=== PATIENT | male | born 1955 | race Caucasian/White ===

== ENCOUNTER 2017-10-12 21:08 | Emergency (ER) | payer MEDICARE ==
[2017-10-12] MEDS ORDERED: ASPIRIN 325 MG TABLET PO ONE (21:14)
--- NOTE | 2017-10-12 21:17 | Emergency Department Record ---
History of Present Illness - General Chief Complaint: Chest Pain Stated Complaint: CHEST PAIN Time Seen by Provider: 10/12/17 21:14 Source: Patient, Family Mode of Arrival: Ambulatory Limitations: No limitations - History of Present Illness Initial Comments: 62 yo male presents with chest pain on and off for the last week. 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 His course was complicated by a sternal fracture in the post op period. 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 It happens with movements, cough, laugh, position changes. It is not with exertion. No shortness of breath. The pain is "pokey" or sharp with certain palpation, movements or positions. The pain occurs with reaching, pushing, more noticeable upright than laying down. MD Complaint: Chest pain -: Week(s) (1) Onset: During rest (with movement) Pain Location: Right chest Pain Radiation: None Severity: Moderate Quality: Sharp Consistency: Intermittent Improves With: Remaining still Worsens With: Movement, Palpation Context: Other (History of sternal injury) Anginal Symptoms: Other (No other symptoms) Treatments Prior to Arrival: None - Related Data Home Medications Medication Instructions Recorded Confirmed Last Taken Aspirin 81 mg PO DAILY 10/12/17 10/12/17 Unknown Atorvastatin Calcium 80 mg PO DAILY 10/12/17 10/12/17 Unknown Cholecalciferol (Vitamin D3) 2,000 unit PO DAILY 10/12/17 10/12/17 Unknown [Vitamin D3] Ferrous Sulfate [Iron] 325 mg PO DAILY 10/12/17 10/12/17 Unknown Glipizide [Glucotrol] 10 mg PO BID 10/12/17 10/12/17 Unknown Ibuprofen [Motrin 400Mg] 400 mg PO Q8H 10/12/17 10/12/17 Unknown Losartan Potassium [Cozaar] 100 mg PO QAM 10/12/17 10/12/17 Unknown Metformin HCl [Glucophage] 1,000 mg PO BID 10/12/17 10/12/17 Unknown Metoprolol Succinate 150 mg PO DAILY 10/12/17 10/12/17 Unknown Pantoprazole Sodium [Protonix] 40 mg PO DAILY 10/12/17 10/12/17 Unknown Previous Rx's Medication Instructions Recorded Hydrocodone/Acetaminophen [[place] 1 tab PO Q8H PRN #15 tab 10/12/17 10mg/325mg] Allergies Allergy/AdvReac Type Severity Reaction Status Date / Time No Known Drug Allergies Allergy Verified 10/12/17 21:21 Review of Systems Constitutional: Denies: Chills, Fever, Malaise, Weakness Eyes: Denies: Eye discharge ENT: Denies: Congestion, Throat pain Respiratory: Denies: Cough, Hemoptysis, Stridor, Wheezes Cardiovascular: Reports: Chest pain (chest wall pain). Denies: Arrhythmia, Syncope Endocrine: Denies: Fatigue Gastrointestinal: Denies: Abdominal pain, Diarrhea, Nausea, Vomiting Genitourinary: Denies: Dysuria, Frequency, Hematuria Musculoskeletal: Denies: Arthralgia, Back pain, Joint swelling, Myalgia, Neck pain Skin: Denies: Bruising, Change in color, Rash Neurological: Denies: Confusion, Headache, Numbness, Weakness Psychiatric: Denies: Anxiety Hematological/Lymphatic: Denies: Blood Clots, Easy bleeding, Easy bruising, Swollen glands Physical Exam - General General Appearance: Alert, Oriented x3, Cooperative, No acute distress, Other ( Relaxed, calm, NAD, observed pain with movements) Limitations: No limitations - Head Head exam: Normal inspection - Eye Eye exam: Normal appearance, PERRL - ENT ENT exam: Normal exam, Mucous membranes moist Ear exam: Normal external inspection Nasal Exam: Normal inspection Mouth exam: Normal external inspection Teeth exam: Normal inspection Throat exam: Normal inspection - Neck Neck exam: Normal inspection, Full ROM. negative: Tenderness - Respiratory Respiratory exam: Normal lung sounds bilaterally, Chest wall tenderness (tender below the nipple, very reprodible with palpation, he points to this area with movement or reaching as the location). negative: Accessory muscle use, Decreased breath sounds, Prolonged expiratory, Respiratory distress, Rhonchi, Stridor, Wheezes - Cardiovascular Cardiovascular Exam: Regular rate, Normal rhythm, Normal heart sounds. negative : Irregular rhythm Peripheral Pulses: 2+: Radial (R), Radial (L) - GI/Abdominal GI/Abdominal exam: Soft. negative: Tenderness - Rectal Rectal exam: Deferred - exam: Deferred - Extremities Extremities exam: Normal inspection, Full ROM. negative: Calf tenderness, Joint swelling, Pedal edema, Tenderness - Back Back exam: Reports: Normal inspection, Full ROM. Denies: CVA tenderness (R), CVA tenderness (L), Muscle spasm, Paraspinal tenderness, Rash noted, Tenderness , Vertebral tenderness - Neurological Neurological exam: Alert, Normal gait, Oriented X3 - Psychiatric Psychiatric exam: Normal affect, Normal mood. negative: Agitated, Anxious - Skin Skin exam: Dry, Intact, Normal color, Warm Course - Reevaluation(s) Reevaluation #1: 10/12/17 21:24 EKG NSR rate is 79, intervals normal, ST normal, Baker normal. Normal EKG. No old. No prior visits. He follows with [facility]. 10/12/17 21:24 The examination is very consistent with musculo-skeletal chest wall tenderness. His HPI and examination are very inconsistent with ACS. Normal EKG. 10/12/17 21:38 10/12/17 21:45 The CBC and CMP were reviewed. No acute changes. The GFR is normal. 10/12/17 21:56 Negative Troponin after 7 days of atypical pain, normal EKG CTA ordered 10/12/17 22:[address] scan was reviewed. No acute process noted. Post op scarring changes noted. DC home with pain that is very reproducible, consistently chest wall in nature. Patient is to call his doctor for close follow up. Medical Decision Making - Lab Data Result diagrams: 10/12/17 21:20 10/12/17 21:20 Disposition Disposition: Discharge Clinical Impression: Chest wall pain Disposition: Home, Self-Care Condition: (1) Good Instructions: Chest Pain (ED), Chest Wall Pain (ED) Additional Instructions: Call your doctor for a recheck of your pain Return or be seen if worse, cough, fever, any symptoms with exertion or new concerns Prescriptions: Hydrocodone/Acetaminophen [[place] 10mg/325mg] 1 tab PO Q8H PRN #15 tab PRN Reason: Pain - General Forms: Patient Portal Access Time of Disposition: 22:52 Quality - Quality Measures Quality Measures: N/A - Blood Pressure Screening Does Patient Have Any of the Following: No Blood Pressure Classification: Normal BP Reading Systolic Measurement: 117 Diastolic Measurement: 65 Screening for High Blood Pressure: < Normal BP, F/U Not Required > [G8783] Pre-Hypertensive Follow-up Interventions: Referral to alternative/primary care provider.
[2017-10-12] MEDS ORDERED: ASPIRIN 81 MG CHEWABLE TABLET PO ONE (21:25)
[2017-10-12 21:34] LABS: BASO % 0.3 % (0-6); EOS % 2.6 % (0-6); GRAN % 48.4 % (47-80); HEMATOCRIT 40.8 % (42.0-52.0); HEMOGLOBIN 13.5 gm/dl (14.0-18.0); LYMPH % 38.2 % (16-45); MEAN CELL VOLUME 78.5 fl (81-97); MEAN CORPUSCULAR HGB CONC 33.1 g/dl (32-36); MEAN PLATELET VOLUME 9.8 fl (7.4-10.4); MONO % 10.5 % (0-9); PLATELET COUNT 216 K/uL (130-400); RED CELL DISTRIBUTION WIDTH 18.2 % (11.5-14.5); WHITE BLOOD COUNT W/O DIFF 9.5 K/uL (4.2-12.2)
[2017-10-12] MEDS ORDERED: HYDROCODONE/APAP 7.5/325MG TABLET PO ONE ×2 (21:34→23:03)
[2017-10-12 21:35] LABS: MEAN CORPUSCULAR HEMOGLOBIN 25.9 pg (27-33)
[2017-10-12 21:41] LABS: BLOOD UREA NITROGEN 7 mg/dL (8-23); CREATININE 0.7 mg/dL (0.7-1.2); EST GLOMERULAR FILTRATION RATE > 60 mL/min
[2017-10-12 21:44] LABS: GLUCOSE,RANDOM 106 mg/dL (74-109); INR 0.97; PARTIAL THROMBOPLASTIN TIME 25.7 SECONDS (24.5-39.1); PROTHROMBIN TIME (PATIENT) 10.5 SECONDS (9.5-12.1)
[2017-10-12 21:47] LABS: CREATINE PHOSPHOKINASE 217 U/L (39-308)
[2017-10-12 21:49] LABS: CKMB 5.9 ng/mL (<6.73)
--- NOTE | 2017-10-13 21:29 | CT ANGIOGRAM REPORT ---
EXAM: CT ANGIOGRAM CHEST CTA w contrast HISTORY: SHARP CHEST PAIN IN REGION OF RIGHT BREAST FOR ONE WEEK WITH WORSENING IN LAST HOUR. TECHNIQUE: Routine CTA examination of the chest is performed utilizing a pulmonary embolus protocol with 100 mL of Omnipaque-350 utilized. Coronal and sagittal maximum-intensity projection reformatted images are generated and reviewed. COMPARISON: None. FINDINGS: Opacification of the pulmonary arteries is satisfactory for interpretation. No luminal filling defect is noted in the outflow tract, main arteries, lobar arteries, nor proximal segmental arteries to suggest acute pulmonary embolic disease. Post median sternotomy changes are present. The heart projects mildly enlarged. The thoracic aorta is mildly tortuous and atherosclerotic but without focal aneurysmal dilatation nor dissection. There is atherosclerotic calcification of the [place] pa[place] coronary arteries. There is minor fat stranding in the immediate retrosternal mediastinum, likely relating to postsurgical scarring. No mediastinal or hilar mass/adenopathy is seen. The adrenal glands are not enlarged. The gallbladder is unremarkable. No lung consolidation is identified. Linear scarring vs. atelectasis is noted scattered in the mid and lower lungs. No pleural or pericardial effusion. No pneumothorax. No lytic or blastic bone lesion. There are mild degenerative changes scattered throughout the visualized spine. Surgical anchors are noted within the proximal right humerus. IMPRESSION: 1. POST MEDIAN STERNOTOMY CHANGE. 2. NO CTA EVIDENCE OF ACUTE PULMONARY EMBOLIC DISEASE NOR THORACIC AORTIC DISSECTION. 3. MINOR LINEAR SCARRING SUGGESTED IN THE RETROSTERNAL MEDIASTINAL FAT. 4. MINOR LINEAR SCARRING VS. ATELECTASIS WITHIN THE MID AND LOWER LUNGS. JOB NUMBER: [id number] [facility]
== END 2017-10-12 23:10 | disposition home or self-care (01) ==
LOC: ER 21:08
DX: E11.9 Type 2 diabetes mellitus without complications (principal); I25.2 Old myocardial infarction; Z87.891 Personal history of nicotine dependence; Z79.84 Long term (current) use of oral hypoglycemic drugs; Z95.1 Presence of aortocoronary bypass graft
CPT/HCPCS: 99284 ×2; 82550; 85025; 85730; 85610; 82553; 80048; 84484; 83880; 71275; 93005; 93010; Q9967